=== PATIENT | female | born 1970 | race Caucasian/White ===

== ENCOUNTER 2022-04-16 22:38 | Emergency (ER) | payer OTHER ==
[~2022-04-16 22:38] MED LIST: LEVOFLOXACIN250 MG PO
[2022-04-17] MEDS ORDERED: MEDROL DOSEPAK 24 MG PO (00:14)
[2022-04-17] MEDS ORDERED: CYCLOBENZAPRINE10 MG PO (00:14)
== END 2022-04-17 00:20 | disposition home or self-care (01) ==
LOC: ER1 22:38
DX: M54.50 Low back pain, unspecified (principal); F17.210 Nicotine dependence, cigarettes, uncomplicated
CPT/HCPCS: 72131; 96374; 96375; 99284; J1100; J1885; J2270; J2360; J2405